=== PATIENT | female | born 1985 | race Caucasian/White ===

== ENCOUNTER 2016-08-23 22:39 | Emergency (ER) | payer MEDICAID, OTHER ==
[2016-08-23 22:39] VITALS: BMI 19.2
[2016-08-23 22:43] VITALS: BP 114/74; PULSE 99; TEMP 97.4; O2SAT 97
[2016-08-23] MEDS ORDERED: Tetanus/Diphtheria Toxoids 0.5 ml Syringe IM ONE ×2 (23:06→23:11)
--- NOTE | 2016-08-23 23:19 | C.PDOC ---
History Of Present Illness Patient is a 31 year old female who presents to the ER with a complaint of cutting her right index finger on a can while reaching into the garbage. Patient states her tetanus is not up to date. Denies any fever, vomiting, or any other injury. Time Seen by Provider: 08/23/16 22:50 Chief Complaint (Nursing): Abnormal Skin Integrity History Per: Patient History/Exam Limitations: no limitations Onset/Duration Of Symptoms: Hrs Current Symptoms Are (Timing): Still Present Location Of Injury: Right: Hand (right index finger cut) Past Medical History Reviewed: Historical Data, Nursing Documentation, Vital Signs Vital Signs: Last Vital Signs Temp 97.4 F L 08/23/16 22:41 Pulse 99 H 08/23/16 22:41 Resp 20 08/24/16 00:17 BP 114/74 08/23/16 22:41 Pulse Ox 97 08/24/16 02:03 - [facility] Procedures MANUAL ASSIST DELIV NEC (01/05/13) Family History: States: Unknown Family Hx - Social History Hx Tobacco Use: Yes Hx Alcohol Use: No Hx Substance Use: No - Immunization History Hx Tetanus Toxoid Vaccination: No Hx Influenza Vaccination: No Hx Pneumococcal Vaccination: No Review Of Systems Except As Marked, All Systems Reviewed And Found Negative. Constitutional: Negative for: Fever, Chills Cardiovascular: Negative for: Palpitations Respiratory: Negative for: Cough Gastrointestinal: Negative for: Nausea, Vomiting, Diarrhea Musculoskeletal: Positive for: Hand Pain (Right index finger cut) Physical Exam - Physical Exam Appears: Well, Non-toxic Skin: Normal Color, Warm, Dry Head: Atraumatic, Normacephalic Oral Mucosa: Moist Chest: Symmetrical Cardiovascular: Rhythm Regular Respiratory: Normal Breath Sounds, No Rales, No Rhonchi, No Wheezing Gastrointestinal/Abdominal: Soft, No Tenderness Extremity: Other (Cut on right index finger.) Neurological/Psych: Oriented x3, Normal Speech, Normal Cognition ED Course And Treatment O2 Sat by Pulse Oximetry: 97 (Room air) Pulse Ox Interpretation: Normal Progress Note: Tetanus IM administered. Wound irrigated and dressed with steri strip, patient discharged home. Laceration - Laceration Repair Right index Wound Length (In cm): 0.5 Description Of Wound: Linear (5mm superficial skin flap, distal phalange, velarde surface, no contamination) Wound Cleansed With: Sterile Saline Wound Examination: Irrigated With Saline Wound Closure: Steri Strips Wound Complexity: Simple Disposition - Disposition Disposition: HOME/ ROUTINE Disposition Time: 23:18 Condition: STABLE Additional Instructions: Follow up with your PMD within 2-3 days. Return to Ed if feel worse. Instructions: Finger Laceration (ED) Print Language: [place] - Clinical Impression Clinical Impression: Laceration of finger - Scribe Statement The provider has reviewed the documentation as recorded by the Ezraibsiddharth Martin All medical record entries made by the [place] were at my direction and personally dictated by me. I have reviewed the chart and agree that the record accurately reflects my personal performance of the history, physical exam, medical decision making, and the department course for this patient. I have also personally directed, reviewed, and agree with the discharge instructions and disposition.
[2016-08-24 00:17] VITALS: RESP 20
== END 2016-08-24 00:17 | disposition home or self-care (01) ==
LOC: C.ER 22:39
DX: S61.210A Laceration without foreign body of right index finger without damage to nail, initial encounter (principal); W45.8XXA Other foreign body or object entering through skin, initial encounter; Y93.89 Activity, other specified; Y92.000 Kitchen of unspecified non-institutional (private) residence as the place of occurrence of the external cause

== ENCOUNTER 2016-09-07 15:42 | Emergency (ER) | payer MEDICAID ==
[2016-09-07 15:23] VITALS: BMI 19.2
[2016-09-07] MEDS ORDERED: Dextrose 5%/0.9% NS 1,000 ML IV ONE (16:39)
--- NOTE | 2016-09-07 18:02 | US ---
Indication: No care; P4. Comparison: None available Technique: Real-time ultrasound was performed through the pelvis. Findings: There is a single living fetus in breech presentation. Amniotic fluid volume appears subjectively within normal limits. Posterior placenta. The placenta is not previa. There are no adnexal masses or cysts evident. Cervix length measures approximately 4.4 cm. Measurements and calculations: Fetus has a composite sonographic age of 20 weeks 5 days. This calculation is based on the biparietal diameter, head circumference, abdominal circumference, and femur length. Estimated heart rate 148.2 beats per min. Impression: Single living fetus in breech presentation with a composite sonographic age of 20 weeks 5 days. Estimated heart rate 148.2 beats per min. The study was performed for emergent evaluation and the whole anatomic survey of the fetus was not performed. No abnormality appreciated on the provided views. A whole anatomic survey should be performed on an outpatient elective basis as clinically warranted.
[2016-09-07 19:02] LABS: BASO % 0.1 % (0.0-2.0); HEMATOCRIT 34.1 % (34.0-47.0); LYMPH % 6.4 % (20.0-40.0); MEAN CELL VOLUME 94.9 fL (81.0-99.0); MEAN CORPUSCULAR HEMOGLOBIN 31.3 pg (27.0-31.0); MEAN PLATELET VOLUME 7.5 fL (7.2-11.7); MONO # 0.5 K/uL (0.0-0.8); MONO % 3.1 % (0.0-10.0); PLATELET COUNT 380 K/uL (130-400); RED CELL DISTRIBUTION WIDTH 14.2 % (11.5-14.5); WHITE BLOOD COUNT 15.5 K/uL (4.8-10.8)
[2016-09-07 19:07] LABS: RBC URINE 11 /hpf (0-3); URINE BACTERIA OCC (<OCC); URINE BILIRUBIN NEGATIVE (NEGATIVE); URINE BLOOD 1+ (NEGATIVE); URINE COLOR YELLOW (YELLOW); URINE GLUCOSE (UA) 3+ mg/dL (Normal); URINE KETONE NEGATIVE (NEGATIVE); URINE LEUKOCYTE ESTERASE NEG Leu/uL (Negative); URINE PROTEIN NEGATIVE (NEGATIVE); WBC URINE 5 /hpf (0-5)
[2016-09-07 19:09] LABS: CHLORIDE 100 mmol/L (98-107)
[2016-09-07 19:10] LABS: POTASSIUM 3.4 mmol/L (3.6-5.2); SODIUM 136 mmol/L (132-148)
[2016-09-07 19:12] LABS: ALB/GLOB RATIO 1.3 (1.0-2.1); AST/SGOT 25 U/L (14-36); BILIRUBIN,TOTAL 0.5 mg/dL (0.2-1.3); BLOOD UREA NITROGEN 7 mg/dL (7-17); GFR AFRICAN-AMERICAN > 60; TOTAL PROTEIN 6.8 g/dL (6.3-8.3)
[2016-09-07 19:13] LABS: ALKALINE PHOSPHATASE 71 U/L (38-126); ALT/SGPT 18 U/L (9-52); CALCIUM 8.7 mg/dl (8.6-10.4); GLUCOSE,RANDOM 108 mg/dL (65-105)
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
[2016-09-07 19:44] LABS: THYROID STIMULATING HORMONE 0.16 mIU/L (0.46-4.68)
[2016-09-07 21:08] LABS: CARBON DIOXIDE 25 mmol/L (22-30)
[2016-09-07 21:32] LABS: NEUTROPHIL 85 % (50-75); REACTIVE LYMPHOCYTES 1 % (0-0); TOTAL CELLS COUNTED 100
[2016-09-07 21:33] LABS: LARGE PLATELETS PRESENT; SMUDGE CELLS PRESENT
[2016-09-07 22:22] LABS: RAPID PLASMA REAGIN NONREACTIVE (NONREACTIVE)
[2016-09-12 18:53] LABS: TOXOPLASMA IGG/IGM NEGATIVE (NEGATIVE)
== END 2016-09-07 19:18 | disposition home or self-care (01) ==
LOC: C.EROB 15:42
DX: O09.32 Supervision of pregnancy with insufficient antenatal care, second trimester (principal); O99.322 Drug use complicating pregnancy, second trimester; F19.10 Other psychoactive substance abuse, uncomplicated; Z3A.20 20 weeks gestation of pregnancy
CPT/HCPCS: 76815; 80053; 80324; 80345; 80346; 80349; 80353; 80358; 80361; 81001; 83992; 84439; 84443; 85025; 86592; 86703; 86777; 86787; 86850; 86900; 87491; 87591; 99283; J7042